=== PATIENT | female | born 2000 | race Asian ===

== ENCOUNTER → 2022-12-17 13:28 | Outpatient (CLI) | payer OTHER, MEDICAID, SELFPAY ==
[2022-12-18 04:09] LABS: Labcorp Hemoglobin (Hb) A1c 5.5 % (4.8-5.6)
== END ==
PROVIDERS: Family Provider Family Medicine; PCP Family Medicine; Referring Provider Family Medicine; Visit Provider Family Medicine
DX: R73.9 Hyperglycemia, unspecified (principal)
CPT/HCPCS: 36415; 83036

== ENCOUNTER 2023-01-07 15:05 | Outpatient (RCR) | payer OTHER, MEDICAID, SELFPAY ==
--- NOTE | 2023-01-07 16:00 | PT.OPPOC ---
Physical, Occupational & Speech Therapy At [facility] Current Diagnoses Pain in right leg (01/07/23) Pain in right thigh (01/07/23) Visit Care Team Role Provider Type Nelia Urbina DO Attending Provider Physician Family Provider Primary Care Provider Referring Provider Specialty: Family Practice Address: [address] [place] [address], [address], [facility] Email: [email or web address] Plan Of Care PT-OP-T Assessment and Plan Start: 01/07/23 16:52 Freq: Status: Active Protocol: Document 01/07/23 15:15 DCW (Rec: 01/10/23 09:56 DCW [id number]) Physical Therapy Assessment Rehab Potential Rehabilitation Potential Poor Evaluation Complexity Number of Personal Factors/Comorbidities 0 Number of Body Systems Impaired 1-2 Clinical Presentation at Evaluation Unstable Assessment Summary Assessment Pt presents with LE pain and tenderness of unclear etiology . No indications of soft tissue/musculoskeletal injury. Joint mobility WNL in both hip and knee. Entire R LE hypersensitive to palpation. Pt subjective complaints of increased temperature to the touch and a red spot on her thigh when she has a flair up my indicate underlying vascular condition or potentially CRPS. No indication that pt would benefit from further skilled therapy, but may benefit from further advanced imaging or referral to vascular specialist. Physical Therapy Plan Frequency and Duration Frequency of Treatment 1x/Week Plan of Care Start Date 01/07/23 Plan of Care End Date 01/08/23 Discharge Physical Therapy Discharge Reasons No Longer Attending PT Next Visit Focus/Plan Next Note Type Discharge Summary Plan of Care Dates Plan of Care Start Date 01/07/23 Plan of Care End Date 01/08/23 Electronically Signed by: David Potts, PT 01/10/23 0958 If you are in agreement with this Plan of Care, please return a signed and dated copy. I have reviewed this Plan of Care and certify that the skilled therapy services above are required to meet the patient?s needs. Physician Signature Date Printed Name and Credentials Clinical Instructor Signature Printed Name and Credentials
--- NOTE | 2023-01-07 16:00 | PT.OIE ---
Current Diagnoses Pain in right leg (01/07/23) Pain in right thigh (01/07/23) Past Medical History (Last Updated 12/29/22 @ 20:35 by Henrietta Odom) Anxiety (~2017) Asthma (~2019) PTSD (post-traumatic stress disorder) (~2019) Past Surgical History (Last Updated 12/29/22 @ 20:35 by Henrietta Odom) Anesthesia Robertson teeth removed (~07/2020) Visit Care Team Role Provider Type Nelia Urbina DO Attending Provider Physician Family Provider Primary Care Provider Referring Provider Specialty: Family Practice Address: [address] [place] [address], [address], [facility] Email: [email or web address] [facility] Initial Evaluation PT-OP-A Visit Information Start: 01/07/23 16:51 Freq: Status: Active Protocol: Document 01/07/23 15:15 DCW (Rec: 01/07/23 16:56 DCW [id number]) Out-Patient Physical Therapy Visit Information Visit Information Visit Type Initial Evaluation Visit Start Time 15:15 Visit Stop Time 15:45 Total Visit Minutes 30 Visit Number 1 Number of ENGAGEMENT SPECIALIST Visits 0 Evaluation Information Evaluation Date 01/07/23 PT-OP-B Current Condition Start: 01/07/23 16:51 Freq: Status: Active Protocol: Document 01/07/23 15:15 DCW (Rec: 01/10/23 09:56 DCW [id number]) Current Condition History of Current Condition Onset Date Two year history Current Complaints Off and on leg pain History of Current Condition Pt is a 22 year old female presenting to skilled therapy with a two year history of off and on right leg pain. Pt reports he pain is in her lateral thigh, knee, and recently into her foot. Admits it feels stiff a lot, and she often gets muscle spasms throughout. Entire leg is very sensitive to touch. Pt does not remember any injury to this leg. Notes that often when it gets really bad, her leg is hot to the touch and she gets a red spot on her thigh. PT-OP-C Subjective Start: 01/07/23 16:51 Freq: Status: Active Protocol: Document 01/07/23 15:15 DCW (Rec: 01/07/23 16:56 DCW [id number]) OP-PT Subjective Patient Comments Patient Comments I think there is something else going on with my leg. Patient Reported Progress Worse Patient Questionnaires Lower Extremity Functional Scale LEFS Score 43/80 = 53.75% LEFS Impairment 40 to 59% Impaired (Score 32- 47) OP-PT Pain Assessment Pain Assessment Grid Paper Pain Assessment Grid Completed Yes Location Right Leg Intensity 7 Scale Used Numeric (0 - 10) PT-OP-F Manual Assessment Start: 01/07/23 16:51 Freq: Status: Active Protocol: Document 01/07/23 15:15 DCW (Rec: 01/10/23 09:56 DCW [id number]) Manual Assessments Soft Tissue Assessment Soft Tissue Mobility Assessment Soft tissue tenderness along entirety of right LE Joint Mobility Assessment Joint Mobility Assessment No deficits in joint mobility PT-OP-K Range of Motion Start: 01/07/23 16:52 Freq: Status: Active Protocol: Document 01/07/23 15:15 DCW (Rec: 01/10/23 09:56 DCW [id number]) Hip Goniometric Range of Motion Hip Right Active Hip ROM WFL Yes Knee Goniometric Range of Motion Knee Right Knee ROM WFL Yes PT-OP-L Special Tests Start: 01/07/23 16:52 Freq: Status: Active Protocol: Document 01/07/23 15:15 DCW (Rec: 01/10/23 09:56 DCW [id number]) Special Tests Hip Special Tests Scour Test Test Results Negative Straight Leg Raise Test Results Bilateral hamstring tightness KAYLEN Test Results Negative Knee Special Tests Varus- 25 Degrees Test Results Negative Valgus- 25 Degrees Test Results Negative Posterior Draw Test Results Negative Ever's Test Test Results Mildly positive right Hari Test Test Results Negative Apprehension Test Test Results Negative Anterior Draw Test Results Negative PT-OP-M Strength Start: 01/07/23 16:52 Freq: Status: Active Protocol: Document 01/07/23 15:15 DCW (Rec: 01/07/23 16:56 DCW [id number]) Hip Strength Hip Manual Muscle Testing Right Flexion (L2) 3+ Fair+ Abduction 4- Good- Adduction 4- Good- Left Flexion (L2) 4+ Good+ Abduction 4+ Good+ Adduction 4+ Good+ PT-OP-T Assessment and Plan Start: 01/07/23 16:52 Freq: Status: Active Protocol: Document 01/07/23 15:15 DCW (Rec: 01/10/23 09:56 DCW [id number]) Physical Therapy Assessment Rehab Potential Rehabilitation Potential Poor Evaluation Complexity Number of Personal Factors/Comorbidities 0 Number of Body Systems Impaired 1-2 Clinical Presentation at Evaluation Unstable Assessment Summary Assessment Pt presents with LE pain and tenderness of unclear etiology . No indications of soft tissue/musculoskeletal injury. Joint mobility WNL in both hip and knee. Entire R LE hypersensitive to palpation. Pt subjective complaints of increased temperature to the touch and a red spot on her thigh when she has a flair up my indicate underlying vascular condition or potentially CRPS. No indication that pt would benefit from further skilled therapy, but may benefit from further advanced imaging or referral to vascular specialist. Physical Therapy Plan Frequency and Duration Frequency of Treatment 1x/Week Plan of Care Start Date 01/07/23 Plan of Care End Date 01/08/23 Discharge Physical Therapy Discharge Reasons No Longer Attending PT Next Visit Focus/Plan Next Note Type Discharge Summary
== END 2023-01-13 16:31 | disposition home or self-care (01) ==
LOC: PHYS 15:05
PROVIDERS: Absent Provider Family Medicine; Family Provider Family Medicine; PCP Family Medicine; Referring Provider Family Medicine; Visit Provider Family Medicine
DX: M79.651 Pain in right thigh (principal); M79.604 Pain in right leg
CPT/HCPCS: 97162

== ENCOUNTER → 2023-01-27 16:21 | Outpatient (CLI) | payer OTHER, MEDICAID, SELFPAY ==
--- NOTE | 2023-01-27 16:23 | DI.RAD.S_ITS ---
PROCEDURE: XR KNEE RT 3V INDICATIONS: right knee pain TECHNIQUE: 3 views of the knee were acquired. COMPARISON: None. FINDINGS: Bones: No fractures or dislocations. No suspicious bony lesions. Soft tissues: No joint effusion. No suspicious soft tissue calcifications. IMPRESSION: No fracture. No osseous lesion. If symptoms and/or clinical suspicion for pathology persists, further assessment with advanced imaging (e.g. CT, MRI or bone scan) should be considered. Dictated by: Joy Guerrero MD, PhD on 01/27/2023 at 17:04 Approved by: Joy Guerrero MD, PhD on 01/27/2023 at 17:04
[2023-01-27 16:40] LABS: Add Manual Diff / Slide Review NO; Basophils Absolute Auto 100 /uL (0-100); Basophils Percent Auto 0.8 % (0-2); Eosinophils Absolute Auto 100 /uL (0-450); Eosinophils Percent Auto 1.2 % (2-4); Hematocrit 36.6 % (36-46); Hemoglobin 12.4 g/dL (12.0-16.0); Lymphocytes Absolute Auto 2300 /uL (1100-4500); Lymphocytes Percent Auto 30.3 % (25-40); Mean Corpuscular HGB Conc 33.9 % (30-36); Mean Corpuscular Hemoglobin 26.8 PG (26-34); Mean Corpuscular Volume 79.2 fL (80-100); Monocytes Absolute Auto 600 /uL (0-900); Monocytes Percent Auto 7.2 % (3-14); Neutrophils Absolute Auto 4700 /uL (1500-7000); Neutrophils Percent Auto 60.5 % (50-75); Platelet Count 318 X10^3/uL (150-400); Red Blood Cell Count 4.62 X10^6/uL (4.0-5.2); Red Cell Distribution Width 12.9 % (11.6-14.8); White Blood Cell Count 7.7 X10^3/uL (4.5-11.0)
[2023-01-27 16:52] LABS: HEMOLYSIS < 15 (0-50); Iron 43 ug/dL (37-170)
[2023-01-27 16:54] LABS: Alanine Aminotransferase 19 IU/L (<35); Albumin 4.3 g/dL (3.5-5.0); Albumin Globulin Ratio 1.3 (1.0-2.8); Alkaline Phosphatase 52 U/L (38-126); Aspartate Aminotransferase 19 IU/L (14-36); BUN Creatinine Ratio 15.2 (6-22); Bilirubin Total 0.3 mg/dL (0.2-1.3); Blood Urea Nitrogen 12 mg/dL (7-17); Calcium 9.3 mg/dL (8.4-10.2); Carbon Dioxide 25 mmol/L (22-32); Chloride 103 mmol/L (98-107); Estimated Glomerular Filt Rate > 60 mL/min (>60); Globulin 3.3 g/dL (1.7-4.1); Glucose 95 mg/dL (70-100); HEMOLYSIS < 15 (0-50); Sodium 136 mmol/L (137-145); Total Protein 7.6 g/dL (6.3-8.2)
[2023-01-27 17:03] LABS: Percent Iron Saturation 11 % (15-50); Total Iron Binding Capacity 392 ug/dL (265-497); Transferrin 297 mg/dL (206-381)
[2023-01-27 17:23] LABS: TSH w/ Reflex to FT4 2.87 uIU/mL (0.47-4.68)
[2023-01-27 17:38] LABS: Vitamin D 25 Hydroxy (D3) 17.1 ng/mL (30.0-100.0)
== END ==
PROVIDERS: Family Provider Family Medicine; PCP Family Medicine; Referring Provider Physician Assistant; Visit Provider Physician Assistant
DX: M25.561 Pain in right knee (principal); H81.10 Benign paroxysmal vertigo, unspecified ear; G89.29 Other chronic pain
CPT/HCPCS: 36415; 73562; 80053; 82306; 83540; 83550; 84443; 85025

== ENCOUNTER → 2023-02-10 10:34 | Outpatient (CLI) | payer OTHER, MEDICAID, SELFPAY ==
[2023-02-10 12:31] LABS: Add Manual Diff / Slide Review NO; Basophils Absolute Auto 0 /uL (0-100); Basophils Percent Auto 0.6 % (0-2); Eosinophils Absolute Auto 100 /uL (0-450); Eosinophils Percent Auto 1.8 % (2-4); Hematocrit 37.9 % (36-46); Hemoglobin 12.5 g/dL (12.0-16.0); Lymphocytes Absolute Auto 1900 /uL (1100-4500); Mean Corpuscular Hemoglobin 26.4 PG (26-34); Mean Corpuscular Volume 80.2 fL (80-100); Monocytes Absolute Auto 300 /uL (0-900); Monocytes Percent Auto 4.5 % (3-14); Neutrophils Absolute Auto 5000 /uL (1500-7000); Neutrophils Percent Auto 67.1 % (50-75); Platelet Count 340 X10^3/uL (150-400); Red Blood Cell Count 4.73 X10^6/uL (4.0-5.2); Red Cell Distribution Width 12.9 % (11.6-14.8); White Blood Cell Count 7.5 X10^3/uL (4.5-11.0)
[2023-02-10 12:56] LABS: Alanine Aminotransferase 18 IU/L (<35); Albumin 4.3 g/dL (3.5-5.0); Albumin Globulin Ratio 1.2 (1.0-2.8); Alkaline Phosphatase 53 U/L (38-126); Aspartate Aminotransferase 20 IU/L (14-36); Bilirubin Total 0.4 mg/dL (0.2-1.3); Blood Urea Nitrogen 11 mg/dL (7-17); Calcium 9.5 mg/dL (8.4-10.2); Carbon Dioxide 26 mmol/L (22-32); Chloride 104 mmol/L (98-107); Estimated Glomerular Filt Rate > 60 mL/min (>60); Globulin 3.6 g/dL (1.7-4.1); Glucose 102 mg/dL (70-100); HEMOLYSIS < 15 (0-50); Sodium 139 mmol/L (137-145); Total Protein 7.9 g/dL (6.3-8.2)
[2023-02-10 13:44] LABS: Vitamin B12 648 pg/mL (239-931)
[2023-02-10 14:10] LABS: Free T4, Direct Thyroxine 1.32 ng/dL (0.78-2.19)
[2023-02-12 02:23] LABS: Free T3, Triiodothyronine Free 3.55 pg/mL (2.77-5.27)
== END ==
PROVIDERS: Family Provider Family Medicine; PCP Family Medicine; Referring Provider Physician Assistant; Visit Provider Physician Assistant
DX: G62.9 Polyneuropathy, unspecified (principal); R42 Dizziness and giddiness; R53.83 Other fatigue; H81.10 Benign paroxysmal vertigo, unspecified ear; I95.1 Orthostatic hypotension; R79.0 Abnormal level of blood mineral
CPT/HCPCS: 36415; 80053; 82607; 84439; 84481; 85025

== ENCOUNTER 2023-02-12 20:37 | Observation (INO) | payer OTHER, MEDICAID, SELFPAY ==
[2023-02-12] VITALS (8 sets, daily range): BP systolic 115–139; BP diastolic 68–84; PULSE 95–149; RESP 8–20; TEMP 37.1–37.2; O2SAT 98–100; BMI 27.3
--- NOTE | 2023-02-12 21:04 | DI.RAD.S_ITS ---
PROCEDURE: XR CHEST 1V INDICATIONS: chest pain TECHNIQUE: One view of the chest was acquired. COMPARISON: None. FINDINGS: Surgical changes and devices: None. Lungs and pleura: Lungs are clear. No pleural effusions or pneumothorax. Mediastinum: Mediastinal contours appear normal. Heart size is normal. Bones and chest wall: No suspicious bony lesions. Overlying soft tissues appear unremarkable. IMPRESSION: No evidence acute pulmonary process. Dictated by: Anup Pagan M.D. on 02/12/2023 at 21:19 Approved by: Anup Pagan M.D. on 02/12/2023 at 21:19
[2023-02-12 21:50] LABS: PTT Partial Thromboplastin Tim 37 SECONDS (26-36)
[2023-02-12 21:51] LABS: Add Manual Diff / Slide Review NO; Basophils Absolute Auto 100 /uL (0-100); Basophils Percent Auto 0.6 % (0-2); Eosinophils Absolute Auto 100 /uL (0-450); Eosinophils Percent Auto 0.6 % (2-4); Hematocrit 38.4 % (36-46); Hemoglobin 12.8 g/dL (12.0-16.0); Lymphocytes Absolute Auto 2400 /uL (1100-4500); Lymphocytes Percent Auto 27.3 % (25-40); Mean Corpuscular HGB Conc 33.2 % (30-36); Mean Corpuscular Hemoglobin 26.4 PG (26-34); Mean Corpuscular Volume 79.5 fL (80-100); Monocytes Absolute Auto 500 /uL (0-900); Monocytes Percent Auto 5.1 % (3-14); Neutrophils Absolute Auto 5900 /uL (1500-7000); Neutrophils Percent Auto 66.4 % (50-75); Platelet Count 382 X10^3/uL (150-400); Red Blood Cell Count 4.83 X10^6/uL (4.0-5.2); Red Cell Distribution Width 12.9 % (11.6-14.8); White Blood Cell Count 8.9 X10^3/uL (4.5-11.0)
[2023-02-12 21:52] LABS: Alanine Aminotransferase 19 IU/L (<35); Albumin 4.7 g/dL (3.5-5.0); Albumin Globulin Ratio 1.2 (1.0-2.8); Alkaline Phosphatase 47 U/L (38-126); Aspartate Aminotransferase 23 IU/L (14-36); BUN Creatinine Ratio 10.6 (6-22); Bilirubin Total 0.3 mg/dL (0.2-1.3); Blood Urea Nitrogen 7 mg/dL (7-17); Calcium 9.5 mg/dL (8.4-10.2); Carbon Dioxide 24 mmol/L (22-32); Chloride 104 mmol/L (98-107); Creatine Kinase 49 U/L (30-135); Estimated Glomerular Filt Rate > 60 mL/min (>60); Glucose 96 mg/dL (70-100); HEMOLYSIS < 15 (0-50); Lipase 69 U/L (23-300); Potassium 3.4 mmol/L (3.4-5.1); Sodium 140 mmol/L (137-145); Total Protein 8.7 g/dL (6.3-8.2)
--- NOTE | 2023-02-12 21:56 | ED.ARRPALP ---
HPI - Arrhythmia/Palpitations General Chief Complaint: Arrhythmia/Palpitations Stated Complaint: Dizzy, Fluctuating BP Time Seen by Provider: 02/12/23 21:53 Source: patient Mode of arrival: Ambulatory Limitations: no limitations History of Present Illness HPI narrative: This is a 22-year-old female with a history of asthma which has been relatively well controlled. Patient states 2-1/2 weeks ago she got sick had nausea vomiting diarrhea the 1st week states that improved she did go to an urgent care got some antinausea medication but then started feeling dizzy. She describes her dizziness as feeling lightheaded like she might pass out. She starts to get a little bit of tunnel vision. She does not have any vertigo symptoms or room spinning or feeling off balance. She saw primary care nurse practitioner who told her she had low vitamin-D, iron and was had orthostatic hypotension. Patient has been drinking water regularly but still felt persistently dizzy. In the last day she had chest pressure/pain which he describes as substernal radiated a little bit towards her back. Did not radiate anywhere else. She denies any abdominal back or flank pain. She states she has felt a little short of breath particularly with sitting up. She states chest pain is worse when she sits upright it goes away when she lays flat. Leaning forward does not make any difference. She does feel that her heart rate goes up when she sits up or tries to walk around. She states she is felt fatigued in her arms and legs overall for the past 2 weeks. She states she was also having some ear pain intermittently but that she saw an ENT who told her that she was okay this was the 1st week around January 27. Patient states she uses inhaler as needed, EpiPen, was taking naproxen but stopped. Patient states she has known asthma. She tried to she thought the smoke might be irritating her lungs. She had some early today but none recently. She has not had any prior surgeries besides wisdom teeth 2 years ago. No known drug allergies. No tobacco, no alcohol, no illicit. No oral contraceptives or other forms of estrogen. No long distance travel. She states mom and dad both have hypertension. Her grandfather had a stroke. No known embolic history otherwise, no known cardiac issues otherwise. Related Data Home Medications Medication Instructions Recorded Confirmed albuterol sulfate 90 mcg/actuation 2 puff inhalation Q6H 11/29/22 02/10/23 aerosol inhaler Previous Rx's Medication Instructions Recorded olopatadine 0.1 % eye drops 1 drp EYE-BOTH BID PRN allergies 12/17/22 #5 mL meclizine 25 mg tablet (Motion 25 mg PO QID #30 tabs 01/27/23 Sickness Relief (meclizine)) ferrous sulfate 325 mg (65 mg 325 mg PO DAILY #90 tabs 01/28/23 iron) tablet,delayed release naproxen 500 mg tablet 500 mg PO BID PRN pain #60 tabs 02/03/23 cholecalciferol (vitamin D3) 1,250 1,250 mcg PO QWEEK #12 caps 02/10/23 mcg (50,000 unit) capsule Allergies Allergy/AdvReac Type Severity Reaction Status Date / Time No Known Drug Allergies Allergy Verified 02/12/23 21:00 Review of Systems Review of Systems ROS Unobtainable: All systems reviewed & are unremarkable except as noted in HPI and below Patient History Medical History Anxiety (~2017) Asthma (~2019) PTSD (post-traumatic stress disorder) (~2019) Skin lesion of lower extremity Surgical History Anesthesia [place] teeth removed (~07/2020) Family History Father Hypertension Mother Mental health problem Social History Smoking Status: Never smoker Smoking Status: Never smoker Substance Use Type: does not use Exam Narrative Exam Narrative: GEN: well nourished, well appearing female, alert and oriented x 3, patient appears to be in mild distress. HEENT: Atraumatic, pupils are equal round reactive to light, extraocular movements are intact, nares are clear, TMs are clear with no fluid, there is no conjunctival pallor. Throat is clear without any exudates, erythema, tonsillar enlargement or uvular deviation HEART: Regular rate and rhythm without murmur, clicks, rubs. Pulses are equal in upper and lower extremities. No JVD noted. No swelling bilateral lower extremities. LUNGS:Lungs clear to auscultation, no wheezes, rales, crackles, chest moves symmetrically, no tachypnea or accessory muscle use ABD:bowel sounds normal, soft, non-tender, no guarding, rebound, rigidity, no masses noted, no hepatosplenomegaly, no pulsatile mass or bruit :No CVA tenderness MSCL: Non-tender, no muscle atrophy, muscles strength 5/5 upper and lower extremities, full range of motion, normal gait NEURO:CN 2-12 intact, sensation normal. SKIN: No rash, erythema or other skin changes. Initial Vital Signs Initial Vital Signs: Vital Signs Temperature 98.8 F 02/12/23 21:00 Pulse Rate 149 H 02/12/23 21:00 Respiratory Rate 18 02/12/23 21:00 Blood Pressure 139/84 02/12/23 21:00 Pulse Oximetry 100 02/12/23 21:00 Oxygen Delivery Method Room Air 02/12/23 21:00 Procedures Paracentesis Indication: Ascites Scores HEART Score Heart Score history: Moderately Suspicious Heart Score EKG: Non-Specific repolarization disturbance Heart Score Age: < 45 years old Heart Score risk factors: No known risk factors Heart Score troponin: < or = to normal limit Heart Score Total: 2 PERC Score Age greater than or equal to 50 years: No Heart rate greater than or equal to 100 bpm: Yes Room Air O2 Sat less than 95%: No Unilateral leg swelling: No Recent trauma or surgery: No Hemoptysis: No Prior PE or DVT: No Hormone Use: No Total PERC Score: 1 Course Orders Ordered: ED Orders 02/12/23 21:04 XR chest 1V Stat EKG-12 Lead Stat 02/12/23 21:25 Urine Culture Stat 02/12/23 21:32 BNP [NT-proBNP (BNP-Adult 18+)] Stat CRP [C-Reactive Protein Quant] Stat Complete Blood Count AUTO DIFF Stat Comprehensive Metabolic Panel Stat ESR [Erythrocyte Sedimentation Rate] Stat Lipase Stat Magnesium Stat PTT Partial Thromboplastin Henrique Stat Prothrombin Time INR Stat Troponin & CK Cardiac Panel Stat 02/12/23 22:25 CT angio chest PE protocol Stat 02/12/23 22:30 Respiratory Panel (Film Array) Stat 02/12/23 23:29 Trop I [Troponin I] Stat 02/13/23 00:32 Urine Microscopic Stat 02/13/23 00:58 EC echo doppler complete Stat 02/13/23 01:09 Urine Drug Screen, Rapid Stat Sodium Chloride (Normal Saline 0.9%) 1,000 mls @ 150 mls/hr IV CONT NIDHI Last Admin: 02/13/23 01:09 Dose: 150 mls/hr Documented By: YAIMA Discontinued Medications Acetaminophen (Acetaminophen 325 Mg Tablet) 975 mg PO NOW ONE Stop: 02/12/23 23:35 Last Admin: 02/12/23 23:39 Dose: 975 mg Documented By: YAIMA Aspirin (Aspirin 81 Mg Chew Tab) 324 mg PO NOW ONE Stop: 02/12/23 21:05 Last Admin: 02/12/23 22:34 Dose: Not Given Documented By: CELE Hydromorphone HCl (Hydromorphone 1 Mg Inj) 1 mg IV NOW ONE Stop: 02/12/23 23:33 Last Admin: 02/12/23 23:36 Dose: Not Given Documented By: YAIMA Sodium Chloride (Normal Saline 0.9%) 1,000 mls @ 1,000 mls/hr IV BOLUS ONE Stop: 02/12/23 22:58 Last Infusion: 02/13/23 00:00 Dose: 0 mls/hr Documented By: Infusion: 02/12/23 22:54 Dose: 1,000 mls/hr Documented By: Admin: 02/12/23 22:35 Dose: 1,000 mls/hr Documented By: SPF Sodium Chloride (Normal Saline 0.9%) 1,000 mls @ 1,000 mls/hr IV BOLUS ONE Stop: 02/13/23 00:41 Last Infusion: 02/13/23 00:43 Dose: 0 mls/hr Documented By: Admin: 02/12/23 23:59 Dose: 1,000 mls/hr Documented By: YAIMA Ondansetron HCl (Ondansetron 4 Mg/2 Ml Inj) 4 mg IV NOW ONE Stop: 02/12/23 23:33 Last Admin: 02/12/23 23:35 Dose: Not Given Documented By: YAIMA Vital Signs Vital signs: Vital Signs - 8 hr 02/12/23 21:00 02/12/23 21:35 02/12/23 22:00 Temperature 98.8 F Pulse Rate 149 H 117 H Respiratory Rate 18 Blood Pressure 139/84 115/68 Pulse Oximetry 100 99 Oxygen Delivery Method Room Air 02/12/23 22:00 02/12/23 22:30 02/12/23 22:30 Temperature Pulse Rate 114 H 112 H Respiratory Rate 14 20 Blood Pressure 122/73 Pulse Oximetry 98 99 Oxygen Delivery Method Room Air 02/12/23 22:48 02/12/23 22:48 02/12/23 22:59 Temperature 99.0 F Pulse Rate 108 H Respiratory Rate 14 Blood Pressure 126/80 118/74 Pulse Oximetry 99 Oxygen Delivery Method 02/12/23 22:59 02/12/23 23:00 02/12/23 23:30 Temperature Pulse Rate 108 H 107 H Respiratory Rate 8 L 11 L Blood Pressure 128/78 Pulse Oximetry 100 100 Oxygen Delivery Method Room Air 02/12/23 23:30 02/13/23 00:00 02/13/23 00:30 Temperature Pulse Rate 95 H 100 H 94 H Respiratory Rate 17 15 13 Blood Pressure Pulse Oximetry 100 99 99 Oxygen Delivery Method 02/13/23 00:47 02/13/23 00:47 02/13/23 01:00 Temperature Pulse Rate 86 Respiratory Rate Blood Pressure 128/85 119/75 Pulse Oximetry 89 L Oxygen Delivery Method 02/13/23 01:00 Temperature Pulse Rate 79 Respiratory Rate 15 Blood Pressure Pulse Oximetry 100 Oxygen Delivery Method MDM - Arrhythmia/Palpitations Lab Data 02/12/23 21:32 02/12/23 21:32 Labs: Lab Results 02/12/23 02/12/23 02/12/23 Range/Units 21:25 21:25 21:32 WBC 8.9 (4.5-11.0) X10^3/uL RBC 4.83 (4.0-5.2) X10^6/uL Hgb 12.8 (12.0-16.0) g/dL Hct 38.4 (36-46) % MCV 79.5 L (80-100) fL MCH 26.4 (26-34) PG MCHC 33.2 (30-36) % RDW 12.9 (11.6-14.8) % Plt Count 382 (150-400) X10^3/uL Neut % (Auto) 66.4 (50-75) % Lymph % (Auto) 27.3 (25-40) % [place] % (Auto) 5.1 (3-14) % Eos % (Auto) 0.6 L (2-4) % Baso % (Auto) 0.6 (0-2) % Neut # (Auto) 5900 (8757-6094) /uL Lymph # (Auto) 2400 (5645-3547) /uL [place] # (Auto) 500 (0-900) /uL Eos # (Auto) 100 (0-450) /uL Baso # (Auto) 100 (0-100) /uL ESR (0-20) MM/HR PT (10.1-12.7) SECONDS INR (0.9-1.3) APTT (26-36) SECONDS Sodium (137-145) mmol/L Potassium (3.4-5.1) mmol/L Chloride (98-107) mmol/L Carbon Dioxide (22-32) mmol/L BUN (7-17) mg/dL Creatinine (0.52-1.04) mg/dL Estimated GFR (>60) mL/min BUN/Creatinine Ratio (6-22) Glucose (70-100) mg/dL Calcium (8.4-10.2) mg/dL Magnesium (1.6-2.3) mg/dL Total Bilirubin (0.2-1.3) mg/dL AST (14-36) IU/L ALT (<35) IU/L Alkaline Phosphatase (38-126) U/L Total Creatine Kinase (30-135) U/L Troponin I (0.01-0.034) ng/mL C-Reactive Protein (<1.0) mg/dL NT-Pro-B Natriuret Pep (<125) pg/mL Total Protein (6.3-8.2) g/dL Albumin (3.5-5.0) g/dL Globulin (1.7-4.1) g/dL Albumin/Globulin Ratio (1.0-2.8) Lipase (23-300) U/L Urine RBC None seen (0-5/HPF) Urine WBC 1-5/hpf (0-5/HPF) Ur Squamous Epith Cells 1-5 /hpf (0-5/HPF) Urine Bacteria Few (2-10) H (None) Ur Culture Indicated? Specimen cultured U Opiates 300ng/mL cut Negative (Negative) Ur Oxycodone Screen Negative (Negative) Urine Methadone Screen Negative (Negative) Ur Barbiturates Screen Negative (Negative) U Tricyclic Antidepress Negative (Negative) Ur Phencyclidine Scrn Negative (Negative) Ur Amphetamines Screen Negative (Negative) U Methamphetamines Scrn Negative (Negative) Ur MDMA Scrn (Ecstasy) Negative (Negative) U Benzodiazepines Scrn Negative (Negative) Urine Cocaine Screen Negative (Negative) U Marijuana (THC) Screen Negative (Negative) Chlamy pneumoniae PCR (Not Detect) Adenovirus (PCR) (Not Detect) B. pertussis DNA (PCR) (Not Detecte) B.parapertussis DNA PCR (Not Detecte) Coronavirus OC43 (PCR) (Not Detect) Coronavirus HKU1 (PCR) (Not Detect) Coronavirus 229E (PCR) (Not Detect) SARS-CoV-2 (PCR) (Not Detecte) Coronavirus NL63 (PCR) (Not Detect) Human Metapneumovir PCR (Not Detect) Influenza Type A (PCR) (Not Detect) Influenza Type B (PCR) (Not Detect) M. pneumoniae (PCR) (Not Detect) Parainfluenza 1 (PCR) (Not Detect) Parainfluenza 2 (PCR) (Not Detect) Parainfluenza 3 (PCR) (Not Detect) Parainfluenza 4 (PCR) (Not Detect) RSV (PCR) (Not Detect) Entero/Rhino (PCR) (Not Detect) 02/12/23 02/12/23 02/12/23 Range/Units 21:32 21:32 21:32 WBC (4.5-11.0) X10^3/uL RBC (4.0-5.2) X10^6/uL Hgb (12.0-16.0) g/dL Hct (36-46) % MCV (80-100) fL MCH (26-34) PG MCHC (30-36) % RDW (11.6-14.8) % Plt Count (150-400) X10^3/uL Neut % (Auto) (50-75) % Lymph % (Auto) (25-40) % [place] % (Auto) (3-14) % Eos % (Auto) (2-4) % Baso % (Auto) (0-2) % Neut # (Auto) (5914-3356) /uL Lymph # (Auto) (3645-4701) /uL [place] # (Auto) (0-900) /uL Eos # (Auto) (0-450) /uL Baso # (Auto) (0-100) /uL ESR 40 H (0-20) MM/HR PT 12.0 (10.1-12.7) SECONDS INR 1.0 (0.9-1.3) APTT 37 H (26-36) SECONDS Sodium 140 (137-145) mmol/L Potassium 3.4 (3.4-5.1) mmol/L Chloride 104 (98-107) mmol/L Carbon Dioxide 24 (22-32) mmol/L BUN 7 (7-17) mg/dL Creatinine 0.66 (0.52-1.04) mg/dL Estimated GFR > 60 (>60) mL/min BUN/Creatinine Ratio 10.6 (6-22) Glucose 96 (70-100) mg/dL Calcium 9.5 (8.4-10.2) mg/dL Magnesium 2.0 (1.6-2.3) mg/dL Total Bilirubin 0.3 (0.2-1.3) mg/dL AST 23 (14-36) IU/L ALT 19 (<35) IU/L Alkaline Phosphatase 47 (38-126) U/L Total Creatine Kinase 49 (30-135) U/L Troponin I < 0.012 (0.01-0.034) ng/mL C-Reactive Protein (<1.0) mg/dL NT-Pro-B Natriuret Pep (<125) pg/mL Total Protein 8.7 H (6.3-8.2) g/dL Albumin 4.7 (3.5-5.0) g/dL Globulin 4.0 (1.7-4.1) g/dL Albumin/Globulin Ratio 1.2 (1.0-2.8) Lipase 69 (23-300) U/L Urine RBC (0-5/HPF) Urine WBC (0-5/HPF) Ur Squamous Epith Cells (0-5/HPF) Urine Bacteria (None) Ur Culture Indicated? U Opiates 300ng/mL cut (Negative) Ur Oxycodone Screen (Negative) Urine Methadone Screen (Negative) Ur Barbiturates Screen (Negative) U Tricyclic Antidepress (Negative) Ur Phencyclidine Scrn (Negative) Ur Amphetamines Screen (Negative) U Methamphetamines Scrn (Negative) Ur MDMA Scrn (Ecstasy) (Negative) U Benzodiazepines Scrn (Negative) Urine Cocaine Screen (Negative) U Marijuana (THC) Screen (Negative) Chlamy pneumoniae PCR (Not Detect) Adenovirus (PCR) (Not Detect) B. pertussis DNA (PCR) (Not Detecte) B.parapertussis DNA PCR (Not Detecte) Coronavirus OC43 (PCR) (Not Detect) Coronavirus HKU1 (PCR) (Not Detect) Coronavirus 229E (PCR) (Not Detect) SARS-CoV-2 (PCR) (Not Detecte) Coronavirus NL63 (PCR) (Not Detect) Human Metapneumovir PCR (Not Detect) Influenza Type A (PCR) (Not Detect) Influenza Type B (PCR) (Not Detect) M. pneumoniae (PCR) (Not Detect) Parainfluenza 1 (PCR) (Not Detect) Parainfluenza 2 (PCR) (Not Detect) Parainfluenza 3 (PCR) (Not Detect) Parainfluenza 4 (PCR) (Not Detect) RSV (PCR) (Not Detect) Entero/Rhino (PCR) (Not Detect) 02/12/23 02/12/23 02/12/23 Range/Units 21:32 22:30 23:29 WBC (4.5-11.0) X10^3/uL RBC (4.0-5.2) X10^6/uL Hgb (12.0-16.0) g/dL Hct (36-46) % MCV (80-100) fL MCH (26-34) PG MCHC (30-36) % RDW (11.6-14.8) % Plt Count (150-400) X10^3/uL Neut % (Auto) (50-75) % Lymph % (Auto) (25-40) % [place] % (Auto) (3-14) % Eos % (Auto) (2-4) % Baso % (Auto) (0-2) % Neut # (Auto) (7290-8907) /uL Lymph # (Auto) (7577-9953) /uL [place] # (Auto) (0-900) /uL Eos # (Auto) (0-450) /uL Baso # (Auto) (0-100) /uL ESR (0-20) MM/HR PT (10.1-12.7) SECONDS INR (0.9-1.3) APTT (26-36) SECONDS Sodium (137-145) mmol/L Potassium (3.4-5.1) mmol/L Chloride (98-107) mmol/L Carbon Dioxide (22-32) mmol/L BUN (7-17) mg/dL Creatinine (0.52-1.04) mg/dL Estimated GFR (>60) mL/min BUN/Creatinine Ratio (6-22) Glucose (70-100) mg/dL Calcium (8.4-10.2) mg/dL Magnesium (1.6-2.3) mg/dL Total Bilirubin (0.2-1.3) mg/dL AST (14-36) IU/L ALT (<35) IU/L Alkaline Phosphatase (38-126) U/L Total Creatine Kinase (30-135) U/L Troponin I < 0.012 (0.01-0.034) ng/mL C-Reactive Protein < 0.5 (<1.0) mg/dL NT-Pro-B Natriuret Pep < 20 (<125) pg/mL Total Protein (6.3-8.2) g/dL Albumin (3.5-5.0) g/dL Globulin (1.7-4.1) g/dL Albumin/Globulin Ratio (1.0-2.8) Lipase (23-300) U/L Urine RBC (0-5/HPF) Urine WBC (0-5/HPF) Ur Squamous Epith Cells (0-5/HPF) Urine Bacteria (None) Ur Culture Indicated? U Opiates 300ng/mL cut (Negative) Ur Oxycodone Screen (Negative) Urine Methadone Screen (Negative) Ur Barbiturates Screen (Negative) U Tricyclic Antidepress (Negative) Ur Phencyclidine Scrn (Negative) Ur Amphetamines Screen (Negative) U Methamphetamines Scrn (Negative) Ur MDMA Scrn (Ecstasy) (Negative) U Benzodiazepines Scrn (Negative) Urine Cocaine Screen (Negative) U Marijuana (THC) Screen (Negative) Chlamy pneumoniae PCR Not detected (Not Detect) Adenovirus (PCR) Not detected (Not Detect) B. pertussis DNA (PCR) Not detected (Not Detecte) B.parapertussis DNA PCR Not detected (Not Detecte) Coronavirus OC43 (PCR) Not detected (Not Detect) Coronavirus HKU1 (PCR) Not detected (Not Detect) Coronavirus 229E (PCR) Not detected (Not Detect) SARS-CoV-2 (PCR) Not detected (Not Detecte) Coronavirus NL63 (PCR) Not detected (Not Detect) Human Metapneumovir PCR Not detected (Not Detect) Influenza Type A (PCR) Not detected (Not Detect) Influenza Type B (PCR) Not detected (Not Detect) M. pneumoniae (PCR) Not detected (Not Detect) Parainfluenza 1 (PCR) Not detected (Not Detect) Parainfluenza 2 (PCR) Not detected (Not Detect) Parainfluenza 3 (PCR) Not detected (Not Detect) Parainfluenza 4 (PCR) Not detected (Not Detect) RSV (PCR) Not detected (Not Detect) Entero/Rhino (PCR) Not detected (Not Detect) Point of Care Testing Test Results Negative Urine Dip Bedside Urine Glucose Negative Bedside Urine Bilirubin - Negative Bedside Urine Ketone - Negative Urine Specific [place] 1.005 Bedside Urine Occult Blood - Negative Bedside Urine pH 7.5 Bedside Urine Protein - Negative Bedside Urine Urobilinogen - Negative Bedside Urine Nitrite - Negative Bedside Urine Leukocytes ++ 125 Esterase Imaging Data Chest x-ray: Radiologist's Impresson: Close Chest X-Ray (Signed) Anup Pagan - 02/12/23 Knee X-Ray (Signed) Joy Guerrero - 01/27/23 Launch?[address] [address] XRay Report Signed Patient: Vipul Zheng MR#: [id number] : 2000 Acct:[id number] Age/Sex: 22 / F Date of Service: 02/12/23 Loc: ED Accession Number: [id number] ?? Procedure: XR chest 1V Ordering Provider: Ashley Parkinson D.O. PROCEDURE:? XR CHEST 1V ? INDICATIONS:? chest pain ? TECHNIQUE:? One view of the chest was acquired.? ? COMPARISON:? None. ? FINDINGS:? ? Surgical changes and devices:? None.? ? Lungs and pleura:? Lungs are clear.? No pleural effusions or pneumothorax.? ? Mediastinum:? Mediastinal contours appear normal.? Heart size is normal.? ? Bones and chest wall:? No suspicious bony lesions.? Overlying soft tissues appear unremarkable.? ? IMPRESSION:? No evidence acute pulmonary process. ? ? ? Dictated by: Anup Pagan M.D. on 02/12/2023 at 21:19 ? ? Approved by: Anup Pagan M.D. on 02/12/2023 at 21:19?? CT scan - chest: Radiologist's Impresson: [address] [id number] ReportSigned Patient: Irving Jimenez#: [id number]: 07/18/1982Acct:[id number]/Sex: 40 / FDate of Service: 02/12/23Loc: EDAccession Number: [id number]? ? Procedure: XR chest 1V Ordering Provider: Ashley Parkinson D.O. PROCEDURE:? XR CHEST 1V ? INDICATIONS:? sob, ascites. ? TECHNIQUE:? One view of the chest was acquired.? ? COMPARISON:? None. ? FINDINGS:? ? Surgical changes and devices:? None.? ? Lungs and pleura:? Submaximal inspiration with vascular crowding.? No gross infiltrates. ? Mediastinum:? Mediastinal contours appear normal.? Heart size is normal.? ? Bones and chest wall:? No suspicious bony lesions.? Overlying soft tissues appear unremarkable.? ? IMPRESSION:? Submaximal inspiration with vascular crowding.? No gross infiltrates. ? ? Dictated by: Anup Pagan M.D. on 02/12/2023 at 22:17? ?? Approved by: Anup Pagan M.D. on 02/12/2023 at 22:18?? ECG Data Attestation: I personally reviewed and interpreted this ECG as follows: Prior ECG tracings: not available for review Interpretation: Sinus tachycardia rate of 119 PA 144 QRS is 72 QTC of 427. No acute ST elevation. Patient has flattening of T-waves in lateral leads. EKG 2. Sinus rhythm/tachycardia rate of 100 PA 158 QRS is 74 and QTC of 428. No acute ST elevation or depression appreciated. Lead 3 appears similar to prior. No dynamic changes appreciated. MDM Narrative Medical decision making narrative: 22-year-old female presents with complaint of GI illness with nausea vomiting and diarrhea 2 weeks ago that lasted for about a week that improved but she started feeling dizzy describe some orthostatic hypotension primary care office she went to. Patient is persistently felt dizzy and lightheaded particularly when she is upright or tries to walk around she is not had any syncope. She notes that her heart rate is elevated when she sits upright or tries to stand. She started developed chest pain in the last 1-2 days. She is felt a little short of breath. Chest pain is present when she sits upright is resolved when she lays backwards. She does not think it is any worse when she leans forward. Discussed with patient her CBC, CMP, coags, troponin do not show any acute clear cause. Patient has what appears to be sinus tachycardia heart rate was 140 improved lying flat she resolved down to a 110 but is still persistently present, was given a L of fluids. EKG shows nonspecific T-wave change no obvious PA elevation throughout. No priors for comparison. Suspect myocarditis and pulmonary emboli are on the differential as well, vascular issue seems less likely. Plan for repeat troponin, CT angio chest and respiratory panel as patient did have a recent likely viral illness 2-1/2 weeks ago. ESR and CRP were also added on. Respiratory panel is negative. CT angio chest is negative, no pericardial effusion appreciated no pulmonary emboli, lungs are clear, heart size is normal, thoracic aorta normal caliber and enhancement. Patient's ESR is elevated at 40 but CRP is negative. Repeat troponin is negative. Repeat EKG showed no acute changes. Patient had TSH on 01/27/2023 which was normal range at T3/T4 2 days ago which were both in normal range. Patient did have leuks on her urine, no nitrates. Microscopy is pending. Patient states she has not appreciate any urinary symptoms. Patient received a L of fluid and heart rates continued to improve, was given a 2nd additional L as heart rate was approximately 100 after 1 L NS. Patient feels improved after 2 L. HR is consistently in the 90s. Patient got up to use bedside commode when we try to stand and ambulate her heart rate immediately goes to 130 with pulse oximetry. Blood pressure maintained in the 120s. Patient feels very lightheaded like she may pass out. Spoke with Dr. Cotto, hospitalist who accepts for observation. He asked for U tox. Patient has urine in the labs so this was ordered and echo in the a.m.. Discussed if he would like cultures or any additional labs at this time defers. We will continue with fluids. Discharge Plan Departure Patient Disposition: Admitted as Observation Clinical Impression: Tachycardia, Chest pain Admit Date/Time: 02/13/23 01:03 Admit Provider: Sanya Cotto
[2023-02-12 22:03] LABS: Troponin I < 0.012 ng/mL (0.01-0.034)
--- NOTE | 2023-02-12 22:25 | DI.CT.S_ITS ---
PROCEDURE: CT ANGIO CHEST PE PROTOCOL INDICATIONS: RT-sided chest pain, tachy, recent gi illness 2 weeks ago TECHNIQUE: After the administration of intravenous contrast, 2 mm thick sections acquired from the pulmonary apices to the posterior costophrenic angles. 3-dimensional maximum intensity projection (MIP) coronal and sagittal reformats were then acquired through the thorax. For radiation dose reduction, the following was used: automated exposure control, adjustment of mA and/or kV according to patient size. COMPARISON: None. FINDINGS: Image quality: Excellent. Pulmonary arteries: Pulmonary arteries are normal in size, and demonstrate no intraluminal filling defects to suggest central pulmonary embolism. Lungs and pleura: Lungs are clear. No pleural effusions or pneumothorax. Central and peripheral airways are patent. Mediastinum: Heart size is normal, without pericardial effusion. No mediastinal or hilar adenopathy. Thoracic aorta is normal in caliber and enhancement. Esophagus is normal in caliber, without hiatal hernia. Bones and chest wall: No suspicious bony lesions. Ribs and thoracic spine appear intact throughout. Thyroid gland is unremarkable. No axillary or supraclavicular adenopathy. Abdomen: Visualized upper abdominal solid organs appear normal in the early arterial phase of enhancement. IMPRESSION: 1. No acute pulmonary emboli. 2. No acute pulmonary process. Dictated by: Anup Pagan M.D. on 02/12/2023 at 23:19 Approved by: Anup Pagan M.D. on 02/12/2023 at 23:20
[2023-02-12] MEDS: SODIUM CHLORIDE 0.9% 1,000 ML 1000 ML IV ×2 (22:35→23:59)
[2023-02-12 22:43] LABS: C-Reactive Protein Quant < 0.5 mg/dL (<1.0)
[2023-02-12 22:49] LABS: NT-proBNP (BNP-Adult 18+) < 20 pg/mL (<125)
[2023-02-12 22:55] LABS: Erythrocyte Sedimentation Rate 40 MM/HR (0-20)
--- NOTE | 2023-02-12 23:02 | PC.NURSE ---
Pt returns from CT and informed hyperbaric technician that her chest felt hot. I went in to assess pt and re initiate iv fluids. Pt temp was 99.0 fahrenheit orally. Vitals stable, sinus tachycardia @117bpm. Patient denies having any hives, itching, swelling of her tongue or mouth. I made sure she had the call light and informed doctor of patient's concern. Briefly after patient put vice president mission integration light, i went to assess pt. She states my heart rate dropped to 79 and I got scared. awake overnight monitor reading 108-115bpm sinus tachy. I sat with patient to reassure her and told her to call us again if anything changes. Patient expressed understanding. No further concerns at this time.
[2023-02-12 23:36] LABS: Adenovirus Not Detected (Not Detect); Coronavirus 229E Not Detected (Not Detect); Coronavirus HKU1 Not Detected (Not Detect); Coronavirus NL 63 Not Detected (Not Detect); Coronavirus OC43 Not Detected (Not Detect); Human Metapneumovirus Not Detected (Not Detect); Human Rhinovirus/Enterovirus Not Detected (Not Detect); SARS- CoV-2 Not Detected (Not Detecte)
[2023-02-12 23:37] LABS: B. parapertussis Not Detected (Not Detecte); Bordetella pertussis Not Detected (Not Detecte); Chlamydophila pneumoniae Not Detected (Not Detect); Influenza A Not Detected (Not Detect); Influenza B Not Detected (Not Detect); Mycoplasma pneumoniae Not Detected (Not Detect); Parainfluenza Virus 1 Not Detected (Not Detect); Parainfluenza Virus 2 Not Detected (Not Detect); Parainfluenza Virus 3 Not Detected (Not Detect); Parainfluenza Virus 4 Not Detected (Not Detect); Respiratory Syncytial Virus Not Detected (Not Detect)
[2023-02-12] MEDS: ACETAMINOPHEN 325 MG TABLET 975 MG PO (23:39)
[2023-02-12 23:58] LABS: Troponin I < 0.012 ng/mL (0.01-0.034)
[2023-02-13] VITALS (10 sets, daily range): BP systolic 100–174; BP diastolic 60–90; PULSE 69–113; RESP 13–18; TEMP 35.7–36.4; O2SAT 89–100; BMI 27.1
--- NOTE | 2023-02-13 00:58 | DI.ECHO.S_ITS ---
[facility]---------+ [facility] +---------+ : : [address] : [address] : : : : [id number] : : : : Phone: [phone]+ Echocardiogram Report + + :Name: VIDAL ZAMAN Study Date: 02/13/2023 Height: 60 in : :[facility] ReadingLocation: Weight: 140 lb : : Gender: Female BSA: 1.6 m2 : :: 2000 Age: 22 yrs BP: 100/65 mmHg: :Reason For Study: TACHYCARDIA : :Ordering Physician: MINOR, : :SARITHA Performed By: Gayle Valdez : :Referring: SARITHA GAXIOLA : + + Interpretation Summary The ejection fraction is estimated to be 60-65%. Diastolic parameters suggest probable normal left ventricular diastolic function and normal filling pressures. The right ventricle is normal in size and function. No significant valvular abnormalities. Pulmonary artery pressures cannot be estimated because of the lack of a measurable TR jet velocity. Procedure: A two-dimensional transthoracic echocardiogram with color flow and Doppler was performed. The study quality was technically adequate. There is no prior echocardiogram noted for this patient. The patient was in sinus rhythm with heart rates between 70-76 bpm during the exam. Left Ventricle: The left ventricle is normal in size and wall thickness. The ejection fraction is estimated to be 60-65%. Diastolic parameters suggest probable normal left ventricular diastolic function and normal filling pressures. Right Ventricle: The right ventricle is normal in size and function. Atria: The left atrial size is normal. Right atrial size is normal. There is no Doppler evidence for an interatrial shunt. Mitral Valve: The mitral valve is normal in structure and function. There is trace mitral regurgitation. Aortic Valve: The aortic valve is trileaflet. The aortic valve opens well. There is no aortic valve stenosis. No aortic regurgitation is present. Tricuspid Valve: The tricuspid valve is normal in structure and function. There is a trace or physiologic amount of tricuspid regurgitation. Pulmonary artery pressures cannot be estimated because of the lack of a measurable TR jet velocity. Pulmonic Valve: The pulmonic valve leaflets are thin and pliable; valve motion is normal. There is trace pulmonic regurgitation. Great Vessels: The aortic root is normal size. The dimensions of the ascending aorta are normal. The IVC is of normal diameter and collapses greater than 50% with a sniff. This suggests a low right atrial pressure of 3 mm Hg. Pericardium/ Pleura There is no pericardial effusion. There is no pleural effusion. MMode/2D Measurements & Calculations LVIDd: 4.6 cm LVOT diam: 2.0 cm LVIDs: 3.0 cm Ao root diam: 2.5 cm FS: 35.1 % asc Aorta Diam: 2.5 cm IVSd: 0.47 cm Ao Arch Diam (Prox Trans): 1.9 cm LVPWd: 0.67 cm LV bautista. diameter/BSA (cm/m^2): 2.9 LV sys. diameter/BSA (cm/m^2): 1.9 LA A2 area: 12.6 cm2 RA long axis: 3.2 cm LA A4 area: 13.0 cm2 RA area: 8.7 cm2 LA length (vol): 4.2 cm RA vol: 19.8 ml LA vol: 33.5 ml RA : 12.3 ml/m2 LA vol index: 20.9 ml/m2 RVD1 (basal): 3.0 cm RVD2 (mid): 3.1 cm TAPSE: 2.1 cm Doppler Measurements & Calculations Ao V2 max: 123.5 cm/sec LVOT Max Devin: 86.4 cm/sec Ao V2 mean: 93.2 cm/sec LV V1 max P.0 mmHg Ao max P.1 mmHg LV V1 VTI: 17.8 cm Ao mean P.8 mmHg YOVANA(I,D): 2.1 cm2 Ao V2 VTI: 25.2 cm YOVANA(V,D): 2.1 cm2 sev ratio: 0.71 YOVANA indexed to BSA (cm^2/m^2): 1.3 MV E max devin: 94.5 cm/sec PA V2 max: 100.2 cm/sec MV A max devin: 40.9 cm/sec PA V2 mean: 72.9 cm/sec MV E/A: 2.3 PA mean P.3 mmHg Med Peak E' Devin: 12.6 cm/sec PA pr(Accel): 27.6 mmHg E/E' med: 7.5 Lat Peak E' Devin: 17.6 cm/sec E/E' lat: 5.4 E/e' average: 6.4 MV dec time: 0.22 sec SV(LVOT): 53.8 ml Reading Physician:12:34 PM
[2023-02-13] MEDS: SODIUM CHLORIDE 0.9% 1,000 ML 150 ML IV ×2 (01:09→09:40)
[2023-02-13 01:20] LABS: Bacteria Urine Few (2-10); Culture Indicated Urine Specimen Cultured; RBC Urine None Seen (0-5/HPF); Squamous Epithelial Cell Urine 1-5 /HPF (0-5/HPF); WBC Urine 1-5/HPF (0-5/HPF)
[2023-02-13 01:30] LABS: UR Morphine/Opiate cutoff 300 Negative (Negative); Ur Creatinine Normal (Normal); Ur Specific Gravity Normal (Normal); Urine Amphetamines Negative (Negative); Urine Barbiturates Negative (Negative); Urine Benzodiazepines Negative (Negative); Urine Cocaine Negative (Negative); Urine MDMA Negative (Negative); Urine Methadone Negative (Negative); Urine Methamphetamines Negative (Negative); Urine Oxycodone Negative (Negative); Urine Phencyclidine Negative (Negative); Urine Tetrahydrocannabinol Negative (Negative); Urine Tricyclic Antidepressant Negative (Negative); Urine pH Normal (Normal)
--- NOTE | 2023-02-13 02:54 | PM.HP.1 ---
History of Present Illness History of Present Illness Chief complaint: Dizzy, Fluctuating BP Narrative: ?22-year-old female with a history of asthma which has been relatively well controlled.? Patient states 2-1/2 weeks ago she got sick had nausea vomiting diarrhea the 1st week states that improved she did go to an urgent care got some antinausea medication but then started feeling dizzy.? She describes her dizziness as feeling lightheaded like she might pass out.? She starts to get a little bit of tunnel vision.? She does not have any vertigo symptoms or room spinning or feeling off balance.? She saw primary care nurse practitioner who told her she had low vitamin-D, iron and was had orthostatic hypotension.? Patient has been drinking water regularly but still felt persistently dizzy.? In the last day she had chest pressure/pain which he describes as substernal radiated a little bit towards her back.? Did not radiate anywhere else.? She denies any abdominal back or flank pain.? She states she has felt a little short of breath particularly with sitting up.? She states chest pain is worse when she sits upright it goes away when she lays flat.? Leaning forward does not make any difference.? She does feel that her heart rate goes up when she sits up or tries to walk around.? She states she is felt fatigued in her arms and legs overall for the past 2 weeks.? She states she was also having some ear pain intermittently but that she saw an ENT who told her that she was okay this was the 1st week around January 27.? Patient states she uses inhaler as needed, EpiPen, was taking naproxen but stopped.? Patient states she has known asthma.? She tried to she thought the smoke might be irritating her lungs.? She had some early today but none recently.? She has not had any prior surgeries besides wisdom teeth 2 years ago.? No known drug allergies.? No tobacco, no alcohol, no illicit.? No oral contraceptives or other forms of estrogen.? No long distance travel.? She states mom and dad both have hypertension.? Her grandfather had a stroke.? No known embolic history otherwise, no known cardiac issues otherwise. The patient reports heavy menstruation which finished 3 days ago. [facility] Medical History Anxiety (~2018) Asthma (~2019) PTSD (post-traumatic stress disorder) (~2019) Skin lesion of lower extremity Surgical History Anesthesia [place] teeth removed (~07/2020) Family History Father Hypertension Mother Mental health problem Social History household members: family Smoking Status: Never smoker Meds Home Medications and Allergies Home Medications Medication Instructions Recorded Confirmed Type albuterol sulfate 90 mcg/actuation 2 puff inhalation Q6H 11/29/22 02/13/23 History aerosol inhaler meclizine 25 mg tablet (Motion 25 mg PO QID #30 tabs 01/27/23 02/13/23 Rx Sickness Relief (meclizine)) ferrous sulfate 325 mg (65 mg 325 mg PO DAILY #90 tabs 01/28/23 02/13/23 Rx iron) tablet,delayed release naproxen 500 mg tablet 500 mg PO BID PRN pain #60 tabs 02/03/23 02/13/23 Rx cholecalciferol (vitamin D3) 1,250 1,250 mcg PO QWEEK #12 caps 02/10/23 02/13/23 Rx mcg (50,000 unit) capsule Allergies Allergy/AdvReac Type Severity Reaction Status Date / Time No Known Drug Allergies Allergy Verified 02/12/23 21:00 Review of Systems Constitutional Constitutional: Reports as per HPI and Reports system reviewed and no additional complaints, except as documented Eyes Eyes: Reports as per HPI and Reports system reviewed and no additional complaints, except as documented ENT Ears, Nose, Mouth, and Throat: Yes as per HPI, Yes system reviewed and no additional complaints, except as documented, No dysphagia, No neck pain and No odynophagia Cardiovascular Cardiovascular: Reports system reviewed and no additional complaints, except as documented Respiratory Respiratory: Reports system reviewed and no additional complaints, except as documented Gastrointestinal Gastrointestinal: Denies as per HPI, Reports system reviewed and no additional complaints, except as documented, Denies abdominal pain, Denies belching, Denies melena, Denies bloating, Denies hematochezia, Denies change in bowel habits, Denies tenesmus, Denies change in stool character, Denies coffee ground emesis, Denies constipation, Denies cramping, Denies dysphagia, Denies excessive flatus, Denies heartburn, Denies loose stools, Denies nausea, Denies odynophagia, Denies vomiting, Denies hematemesis and Reports other Musculoskeletal Musculoskeletal: Denies as per HPI, Denies system reviewed and no additional complaints, except as documented, Denies abnormal gait, Denies back pain, Denies myalgias, Denies arthralgias, Denies joint swelling, Denies muscle cramps, Denies muscle weakness, Denies neck pain, Denies numbness and Denies radiating pain into limb Neurologic Neurologic: Denies abnormal gait, Denies confusion and Denies numbness Psychiatric Psychiatric: Denies as per HPI, Reports system reviewed and no additional complaints, except as documented, Denies abnormal sleep pattern, Denies anxiety, Denies change in appetite, Denies confusion, Denies depression and Denies auditory hallucinations Exam Vital Signs (past 8 hours): - 02/12/23 21:00 02/12/23 21:35 02/12/23 22:00 Temperature 98.8 F Pulse Rate 149 H 117 H Respiratory Rate 18 Blood Pressure 139/84 115/68 Pulse Oximetry 100 99 Oxygen Delivery Method Room Air Oxygen Flow Rate 02/12/23 22:00 02/12/23 22:30 02/12/23 22:30 Temperature Pulse Rate 114 H 112 H Respiratory Rate 14 20 Blood Pressure 122/73 Pulse Oximetry 98 99 Oxygen Delivery Method Room Air Oxygen Flow Rate 02/12/23 22:48 02/12/23 22:48 02/12/23 22:59 Temperature 99.0 F Pulse Rate 108 H Respiratory Rate 14 Blood Pressure 126/80 118/74 Pulse Oximetry 99 Oxygen Delivery Method Oxygen Flow Rate 02/12/23 22:59 02/12/23 23:00 02/12/23 23:30 Temperature Pulse Rate 108 H 107 H Respiratory Rate 8 L 11 L Blood Pressure 128/78 Pulse Oximetry 100 100 Oxygen Delivery Method Room Air Oxygen Flow Rate 02/12/23 23:30 02/13/23 00:00 02/13/23 00:30 Temperature Pulse Rate 95 H 100 H 94 H Respiratory Rate 17 15 13 Blood Pressure Pulse Oximetry 100 99 99 Oxygen Delivery Method Oxygen Flow Rate 02/13/23 00:47 02/13/23 00:47 02/13/23 01:00 Temperature Pulse Rate 86 Respiratory Rate Blood Pressure 128/85 119/75 Pulse Oximetry 89 L Oxygen Delivery Method Oxygen Flow Rate 02/13/23 01:00 02/13/23 01:30 02/13/23 01:30 Temperature Pulse Rate 79 76 Respiratory Rate 15 15 Blood Pressure 113/72 Pulse Oximetry 100 99 Oxygen Delivery Method Oxygen Flow Rate 02/13/23 02:36 Temperature 97.5 F L Pulse Rate 74 Respiratory Rate 18 Blood Pressure 109/71 Pulse Oximetry 96 Oxygen Delivery Method Oxygen Flow Rate 0 Oxygen Delivery Method Room Air Oxygen Flow Rate 0 Const General: cooperative, comfortable and well developed Orientation: alert and oriented x3 HENMT Head: normal to inspection and atraumatic Face and sinus: normal facial exam Mouth: oral mucosae normal and moist mucous membranes Throat: posterior oropharynx normal Eyes General: appearance normal, both eyes and all related structures Pupils: PERRL EOM: EOM intact bilaterally Neck Neck: normal visual inspection and full ROM Chest Chest: normal inspection of the chest Resp Effort & Inspection: normal respiratory effort and able to speak in complete sentences Auscultation: clear to auscultation bilaterally Cardio Palpation: normal PMI Rate: regular rate Rhythm: regular rhythm Heart Sounds: S1 normal and S2 normal GI Inspection: normal to inspection Palpation: soft and no hepatosplenomegaly Auscultation: normal bowel sounds Skin General: no rashes or lesions noted Neuro General: patient alert, patient awake, patient oriented x3 and no focal motor deficits Cognition: normal cognition Motor: muscle tone normal throughout Sensory Exam: no sensory deficits noted Extrem General: full ROM and no calf tenderness Psych Appearance: grossly normal Mental Status: mental status grossly normal Speech and Movement: speech and movement normal Objective Labs 02/12/23 21:32 02/12/23 21:32 Labs: Laboratory Results - last 24 hr 02/12/23 02/12/23 02/12/23 21:25 21:25 21:32 WBC 8.9 RBC 4.83 Hgb 12.8 Hct 38.4 MCV 79.5 L MCH 26.4 MCHC 33.2 RDW 12.9 Plt Count 382 Neut % (Auto) 66.4 Lymph % (Auto) 27.3 Bertie % (Auto) 5.1 Eos % (Auto) 0.6 L Baso % (Auto) 0.6 Neut # (Auto) 5900 Lymph # (Auto) 2400 Bertie # (Auto) 500 Eos # (Auto) 100 Baso # (Auto) 100 ESR PT INR APTT Sodium Potassium Chloride Carbon Dioxide BUN Creatinine Estimated GFR BUN/Creatinine Ratio Glucose Calcium Magnesium Total Bilirubin AST ALT Alkaline Phosphatase Total Creatine Kinase Troponin I C-Reactive Protein NT-Pro-B Natriuret Pep Total Protein Albumin Globulin Albumin/Globulin Ratio Lipase Urine RBC None seen Urine WBC 1-5/hpf Ur Squamous Epith Cells 1-5 /hpf Urine Bacteria Few (2-10) H Ur Culture Indicated? Specimen cultured U Opiates 300ng/mL cut Negative Ur Oxycodone Screen Negative Urine Methadone Screen Negative Ur Barbiturates Screen Negative U Tricyclic Antidepress Negative Ur Phencyclidine Scrn Negative Ur Amphetamines Screen Negative U Methamphetamines Scrn Negative Ur MDMA Scrn (Ecstasy) Negative U Benzodiazepines Scrn Negative Urine Cocaine Screen Negative U Marijuana (THC) Screen Negative Chlamy pneumoniae PCR Adenovirus (PCR) B. pertussis DNA (PCR) B.parapertussis DNA PCR Coronavirus OC43 (PCR) Coronavirus HKU1 (PCR) Coronavirus 229E (PCR) SARS-CoV-2 (PCR) Coronavirus NL63 (PCR) Human Metapneumovir PCR Influenza Type A (PCR) Influenza Type B (PCR) M. pneumoniae (PCR) Parainfluenza 1 (PCR) Parainfluenza 2 (PCR) Parainfluenza 3 (PCR) Parainfluenza 4 (PCR) RSV (PCR) Entero/Rhino (PCR) 02/12/23 02/12/23 02/12/23 21:32 21:32 21:32 WBC RBC Hgb Hct MCV MCH MCHC RDW Plt Count Neut % (Auto) Lymph % (Auto) Bertie % (Auto) Eos % (Auto) Baso % (Auto) Neut # (Auto) Lymph # (Auto) Bertie # (Auto) Eos # (Auto) Baso # (Auto) ESR 40 H PT 12.0 INR 1.0 APTT 37 H Sodium 140 Potassium 3.4 Chloride 104 Carbon Dioxide 24 BUN 7 Creatinine 0.66 Estimated GFR > 60 BUN/Creatinine Ratio 10.6 Glucose 96 Calcium 9.5 Magnesium 2.0 Total Bilirubin 0.3 AST 23 ALT 19 Alkaline Phosphatase 47 Total Creatine Kinase 49 Troponin I < 0.012 C-Reactive Protein NT-Pro-B Natriuret Pep Total Protein 8.7 H Albumin 4.7 Globulin 4.0 Albumin/Globulin Ratio 1.2 Lipase 69 Urine RBC Urine WBC Ur Squamous Epith Cells Urine Bacteria Ur Culture Indicated? U Opiates 300ng/mL cut Ur Oxycodone Screen Urine Methadone Screen Ur Barbiturates Screen U Tricyclic Antidepress Ur Phencyclidine Scrn Ur Amphetamines Screen U Methamphetamines Scrn Ur MDMA Scrn (Ecstasy) U Benzodiazepines Scrn Urine Cocaine Screen U Marijuana (THC) Screen Chlamy pneumoniae PCR Adenovirus (PCR) B. pertussis DNA (PCR) B.parapertussis DNA PCR Coronavirus OC43 (PCR) Coronavirus HKU1 (PCR) Coronavirus 229E (PCR) SARS-CoV-2 (PCR) Coronavirus NL63 (PCR) Human Metapneumovir PCR Influenza Type A (PCR) Influenza Type B (PCR) M. pneumoniae (PCR) Parainfluenza 1 (PCR) Parainfluenza 2 (PCR) Parainfluenza 3 (PCR) Parainfluenza 4 (PCR) RSV (PCR) Entero/Rhino (PCR) 02/12/23 02/12/23 02/12/23 21:32 22:30 23:29 WBC RBC Hgb Hct MCV MCH MCHC RDW Plt Count Neut % (Auto) Lymph % (Auto) Bertie % (Auto) Eos % (Auto) Baso % (Auto) Neut # (Auto) Lymph # (Auto) Bertie # (Auto) Eos # (Auto) Baso # (Auto) ESR PT INR APTT Sodium Potassium Chloride Carbon Dioxide BUN Creatinine Estimated GFR BUN/Creatinine Ratio Glucose Calcium Magnesium Total Bilirubin AST ALT Alkaline Phosphatase Total Creatine Kinase Troponin I < 0.012 C-Reactive Protein < 0.5 NT-Pro-B Natriuret Pep < 20 Total Protein Albumin Globulin Albumin/Globulin Ratio Lipase Urine RBC Urine WBC Ur Squamous Epith Cells Urine Bacteria Ur Culture Indicated? U Opiates 300ng/mL cut Ur Oxycodone Screen Urine Methadone Screen Ur Barbiturates Screen U Tricyclic Antidepress Ur Phencyclidine Scrn Ur Amphetamines Screen U Methamphetamines Scrn Ur MDMA Scrn (Ecstasy) U Benzodiazepines Scrn Urine Cocaine Screen U Marijuana (THC) Screen Chlamy pneumoniae PCR Not detected Adenovirus (PCR) Not detected B. pertussis DNA (PCR) Not detected B.parapertussis DNA PCR Not detected Coronavirus OC43 (PCR) Not detected Coronavirus HKU1 (PCR) Not detected Coronavirus 229E (PCR) Not detected SARS-CoV-2 (PCR) Not detected Coronavirus NL63 (PCR) Not detected Human Metapneumovir PCR Not detected Influenza Type A (PCR) Not detected Influenza Type B (PCR) Not detected M. pneumoniae (PCR) Not detected Parainfluenza 1 (PCR) Not detected Parainfluenza 2 (PCR) Not detected Parainfluenza 3 (PCR) Not detected Parainfluenza 4 (PCR) Not detected RSV (PCR) Not detected Entero/Rhino (PCR) Not detected Assessment & Plan Assessment and plan (1) Tachycardia: Problem details: Unclear etiology. Laboratory unremarkable, U tox unremarkable, EKG showing sinus tachycardia, CT of the chest normal. Patient reported heavy menstruation finished 3 days ago. Status: Acute Plan: -Telemetry -IV fluids -Echo (2) Low ferritin: Problem details: 01/2023: 11 Status: Acute Plan: -Restart iron supplement (3) Vitamin D deficiency: Problem details: 01/2023 @17.1 Status: Acute Plan: -Restart vitamin D supplement (4) Asthma: Status: Acute Plan: -Albuterol as needed Time Spent With Patient Time with patient: 50 to 69 minutes with 50% spent counseling/coordinating care Quality VTE Deep Vein Thrombosis/Pulmonary Embolism Present on Admission: No MIPS - Admit I confirm the patient?s Advance Care Plan is present, Code status is documented, Surrogate decision maker is in patient?s record [If Yes, STOP here]: Yes MIPS - Meds 'Current medications' to include all prescriptions, [id number] products, herbals, cannabis/cannabidiol products, and vitamin/mineral/dietary (nutritional) supplements. I have utilized all available resources to obtain, update, or review the patient?s current medications. [If Yes, STOP here]: Yes
--- NOTE | 2023-02-13 06:15 | PC.NURSE ---
Report taken from ED. Pt A&Ox4, VSS. NSR on tele. C/o dizziness when HOB elevated and with movement. Up to BSC with 1 person assist. Had pt sit on edge of bed until feeling stable enough to stand. No c/o pain since arrival to floor.
--- NOTE | 2023-02-13 07:24 | PM.HP.1 ---
History of Present Illness History of Present Illness Chief complaint: Dizzy, Fluctuating BP Narrative: ?22-year-old female with a history of asthma which has been relatively well controlled.? Patient states 2-1/2 weeks ago she got sick had nausea vomiting diarrhea the 1st week states that improved she did go to an urgent care got some antinausea medication but then started feeling dizzy.? She describes her dizziness as feeling lightheaded like she might pass out.? She starts to get a little bit of tunnel vision.? She does not have any vertigo symptoms or room spinning or feeling off balance.? She saw primary care nurse practitioner who told her she had low vitamin-D, iron and was had orthostatic hypotension.? Patient has been drinking water regularly but still felt persistently dizzy.? In the last day she had chest pressure/pain which he describes as substernal radiated a little bit towards her back.? Did not radiate anywhere else.? She denies any abdominal back or flank pain.? She states she has felt a little short of breath particularly with sitting up.? She states chest pain is worse when she sits upright it goes away when she lays flat.? Leaning forward does not make any difference.? She does feel that her heart rate goes up when she sits up or tries to walk around.? She states she is felt fatigued in her arms and legs overall for the past 2 weeks.? She states she was also having some ear pain intermittently but that she saw an ENT who told her that she was okay this was the 1st week around January 27.? Patient states she uses inhaler as needed, EpiPen, was taking naproxen but stopped.? Patient states she has known asthma.? She tried to she thought the smoke might be irritating her lungs.? She had some early today but none recently.? She has not had any prior surgeries besides wisdom teeth 2 years ago.? No known drug allergies.? No tobacco, no alcohol, no illicit.? No oral contraceptives or other forms of estrogen.? No long distance travel.? She states mom and dad both have hypertension.? Her grandfather had a stroke.? No known embolic history otherwise, no known cardiac issues otherwise. The patient reports heavy menstruation which finished 3 days ago. [facility] Medical History Anxiety (~2018) Asthma (~2019) PTSD (post-traumatic stress disorder) (~2019) Skin lesion of lower extremity Surgical History Anesthesia [place] teeth removed (~07/2020) Family History Father Hypertension Mother Mental health problem Social History household members: family Smoking Status: Never smoker Meds Home Medications and Allergies Home Medications Medication Instructions Recorded Confirmed Type albuterol sulfate 90 mcg/actuation 2 puff inhalation Q6H 11/29/22 02/13/23 History aerosol inhaler meclizine 25 mg tablet (Motion 25 mg PO QID #30 tabs 01/27/23 02/13/23 Rx Sickness Relief (meclizine)) ferrous sulfate 325 mg (65 mg 325 mg PO DAILY #90 tabs 01/28/23 02/13/23 Rx iron) tablet,delayed release naproxen 500 mg tablet 500 mg PO BID PRN pain #60 tabs 02/03/23 02/13/23 Rx cholecalciferol (vitamin D3) 1,250 1,250 mcg PO QWEEK #12 caps 02/10/23 02/13/23 Rx mcg (50,000 unit) capsule Allergies Allergy/AdvReac Type Severity Reaction Status Date / Time No Known Drug Allergies Allergy Verified 02/12/23 21:00 Review of Systems Review of Systems Narrative: All other systems reviewed with the patient and are negative unless otherwise stated. Exam Vital Signs (past 8 hours): - 02/12/23 23:30 02/12/23 23:30 02/13/23 00:00 Temperature Pulse Rate 95 H 100 H Respiratory Rate 17 15 Blood Pressure 128/78 Pulse Oximetry 100 99 Oxygen Flow Rate 02/13/23 00:30 02/13/23 00:47 02/13/23 00:47 Temperature Pulse Rate 94 H 86 Respiratory Rate 13 Blood Pressure 128/85 Pulse Oximetry 99 89 L Oxygen Flow Rate 02/13/23 01:00 02/13/23 01:00 02/13/23 01:30 Temperature Pulse Rate 79 Respiratory Rate 15 Blood Pressure 119/75 113/72 Pulse Oximetry 100 Oxygen Flow Rate 02/13/23 01:30 02/13/23 02:36 Temperature 97.5 F L Pulse Rate 76 74 Respiratory Rate 15 18 Blood Pressure 109/71 Pulse Oximetry 99 96 Oxygen Flow Rate 0 Oxygen Delivery Method Room Air Oxygen Flow Rate 0 Narrative Exam Narrative: GEN: no acute distress HEENT: moist mucous membranes, PERRL NECK: trachea midline, no JVD CV: regular rate and rhythm, no murmurs PULM: clear bilaterally ABD: soft, nontender, nondistended, no organomegaly EXT: warm and well perfused with no edema NEURO: awake, alert, oriented, no focal deficits Objective Labs 02/12/23 21:32 02/12/23 21:32 Labs: Laboratory Results - last 24 hr 02/12/23 02/12/23 02/12/23 21:25 21:25 21:32 WBC 8.9 RBC 4.83 Hgb 12.8 Hct 38.4 MCV 79.5 L MCH 26.4 MCHC 33.2 RDW 12.9 Plt Count 382 Neut % (Auto) 66.4 Lymph % (Auto) 27.3 [place] % (Auto) 5.1 Eos % (Auto) 0.6 L Baso % (Auto) 0.6 Neut # (Auto) 5900 Lymph # (Auto) 2400 [place] # (Auto) 500 Eos # (Auto) 100 Baso # (Auto) 100 ESR PT INR APTT Sodium Potassium Chloride Carbon Dioxide BUN Creatinine Estimated GFR BUN/Creatinine Ratio Glucose Calcium Magnesium Total Bilirubin AST ALT Alkaline Phosphatase Total Creatine Kinase Troponin I C-Reactive Protein NT-Pro-B Natriuret Pep Total Protein Albumin Globulin Albumin/Globulin Ratio Lipase Urine RBC None seen Urine WBC 1-5/hpf Ur Squamous Epith Cells 1-5 /hpf Urine Bacteria Few (2-10) H Ur Culture Indicated? Specimen cultured U Opiates 300ng/mL cut Negative Ur Oxycodone Screen Negative Urine Methadone Screen Negative Ur Barbiturates Screen Negative U Tricyclic Antidepress Negative Ur Phencyclidine Scrn Negative Ur Amphetamines Screen Negative U Methamphetamines Scrn Negative Ur MDMA Scrn (Ecstasy) Negative U Benzodiazepines Scrn Negative Urine Cocaine Screen Negative U Marijuana (THC) Screen Negative Chlamy pneumoniae PCR Adenovirus (PCR) B. pertussis DNA (PCR) B.parapertussis DNA PCR Coronavirus OC43 (PCR) Coronavirus HKU1 (PCR) Coronavirus 229E (PCR) SARS-CoV-2 (PCR) Coronavirus NL63 (PCR) Human Metapneumovir PCR Influenza Type A (PCR) Influenza Type B (PCR) M. pneumoniae (PCR) Parainfluenza 1 (PCR) Parainfluenza 2 (PCR) Parainfluenza 3 (PCR) Parainfluenza 4 (PCR) RSV (PCR) Entero/Rhino (PCR) 02/12/23 02/12/23 02/12/23 21:32 21:32 21:32 WBC RBC Hgb Hct MCV MCH MCHC RDW Plt Count Neut % (Auto) Lymph % (Auto) [place] % (Auto) Eos % (Auto) Baso % (Auto) Neut # (Auto) Lymph # (Auto) [place] # (Auto) Eos # (Auto) Baso # (Auto) ESR 40 H PT 12.0 INR 1.0 APTT 37 H Sodium 140 Potassium 3.4 Chloride 104 Carbon Dioxide 24 BUN 7 Creatinine 0.66 Estimated GFR > 60 BUN/Creatinine Ratio 10.6 Glucose 96 Calcium 9.5 Magnesium 2.0 Total Bilirubin 0.3 AST 23 ALT 19 Alkaline Phosphatase 47 Total Creatine Kinase 49 Troponin I < 0.012 C-Reactive Protein NT-Pro-B Natriuret Pep Total Protein 8.7 H Albumin 4.7 Globulin 4.0 Albumin/Globulin Ratio 1.2 Lipase 69 Urine RBC Urine WBC Ur Squamous Epith Cells Urine Bacteria Ur Culture Indicated? U Opiates 300ng/mL cut Ur Oxycodone Screen Urine Methadone Screen Ur Barbiturates Screen U Tricyclic Antidepress Ur Phencyclidine Scrn Ur Amphetamines Screen U Methamphetamines Scrn Ur MDMA Scrn (Ecstasy) U Benzodiazepines Scrn Urine Cocaine Screen U Marijuana (THC) Screen Chlamy pneumoniae PCR Adenovirus (PCR) B. pertussis DNA (PCR) B.parapertussis DNA PCR Coronavirus OC43 (PCR) Coronavirus HKU1 (PCR) Coronavirus 229E (PCR) SARS-CoV-2 (PCR) Coronavirus NL63 (PCR) Human Metapneumovir PCR Influenza Type A (PCR) Influenza Type B (PCR) M. pneumoniae (PCR) Parainfluenza 1 (PCR) Parainfluenza 2 (PCR) Parainfluenza 3 (PCR) Parainfluenza 4 (PCR) RSV (PCR) Entero/Rhino (PCR) 02/12/23 02/12/23 02/12/23 21:32 22:30 23:29 WBC RBC Hgb Hct MCV MCH MCHC RDW Plt Count Neut % (Auto) Lymph % (Auto) [place] % (Auto) Eos % (Auto) Baso % (Auto) Neut # (Auto) Lymph # (Auto) [place] # (Auto) Eos # (Auto) Baso # (Auto) ESR PT INR APTT Sodium Potassium Chloride Carbon Dioxide BUN Creatinine Estimated GFR BUN/Creatinine Ratio Glucose Calcium Magnesium Total Bilirubin AST ALT Alkaline Phosphatase Total Creatine Kinase Troponin I < 0.012 C-Reactive Protein < 0.5 NT-Pro-B Natriuret Pep < 20 Total Protein Albumin Globulin Albumin/Globulin Ratio Lipase Urine RBC Urine WBC Ur Squamous Epith Cells Urine Bacteria Ur Culture Indicated? U Opiates 300ng/mL cut Ur Oxycodone Screen Urine Methadone Screen Ur Barbiturates Screen U Tricyclic Antidepress Ur Phencyclidine Scrn Ur Amphetamines Screen U Methamphetamines Scrn Ur MDMA Scrn (Ecstasy) U Benzodiazepines Scrn Urine Cocaine Screen U Marijuana (THC) Screen Chlamy pneumoniae PCR Not detected Adenovirus (PCR) Not detected B. pertussis DNA (PCR) Not detected B.parapertussis DNA PCR Not detected Coronavirus OC43 (PCR) Not detected Coronavirus HKU1 (PCR) Not detected Coronavirus 229E (PCR) Not detected SARS-CoV-2 (PCR) Not detected Coronavirus NL63 (PCR) Not detected Human Metapneumovir PCR Not detected Influenza Type A (PCR) Not detected Influenza Type B (PCR) Not detected M. pneumoniae (PCR) Not detected Parainfluenza 1 (PCR) Not detected Parainfluenza 2 (PCR) Not detected Parainfluenza 3 (PCR) Not detected Parainfluenza 4 (PCR) Not detected RSV (PCR) Not detected Entero/Rhino (PCR) Not detected Assessment & Plan Assessment and plan (1) Tachycardia: Problem details: Unclear etiology. Laboratory unremarkable, U tox unremarkable, EKG showing sinus tachycardia, CT of the chest normal. Patient reported heavy menstruation finished 3 days ago. Status: Acute Plan: -Telemetry -IV fluids -Echo (2) Low ferritin: Problem details: 01/2023: 11 Status: Acute Plan: -Restart iron supplement (3) Vitamin D deficiency: Problem details: 01/2023 @17.1 Status: Acute Plan: -Restart vitamin D supplement (4) Asthma: Status: Acute Plan: -Albuterol as needed Time Spent With Patient Time with patient: 50 to 69 minutes with 50% spent counseling/coordinating care Quality VTE Deep Vein Thrombosis/Pulmonary Embolism Present on Admission: No
[2023-02-13] MEDS: ACETAMINOPHEN 325 MG TABLET 650 MG PO (09:58)
--- NOTE | 2023-02-13 10:27 | CM.DANOTE ---
Initial Discharge Assessment Note: Case reviewed, met with patient. Introduced self and role. Payer: [employer] and Medicaid PCP: Nelia Urbina 22 yo admitted with dizziness, weakness, tachycardia, low ferritin level. ECHO pending. Patient lives in [place] with her parents and is independent. In the Fall she will attend [employer] and lives in a dorm. PLAN: When medically cleared, discharge home to care of parents. Family to transport. YARIEL Discharge Planning/Care Management CM Discharge Assessment Start: 02/13/23 10:25 Freq: Status: Active Protocol: Document 02/13/23 10:25 (Rec: 02/13/23 10:27 [id number]) Discharge Planning Assessment Assigned Plc Engineer Domonique Kuhn RN/DCP Advance Directives? No Prior Living Arrangements House Comment Lives with parents, will move to a dorm in the Fall to attend [employer] Household Members family Type of transporation used prior to Drives own vehicle admit Independent with ADL's Yes Is patient alert and oriented? Yes Caregiver for Another No Discharge Plan Home Referrals Initiated None needed Review Status In Process Next Review Type Continued Stay Review
--- NOTE | 2023-02-13 10:42 | PC.NURSE ---
Addendum entered by Karol Fitzgerald R.N. 02/13/23 14:58: pt feeling 75% better verbal and written discharge instructions given-home via private vehicle with family, Original Note: echo done in room complete, assist to br and pt c/o being dizzy but mostly lightheaded. voiding large amt and c/o h/a-medicated with tylenol po. pt report sx better when lying flat.
--- NOTE | 2023-02-13 13:38 | PM.DS.1 ---
History of Present Illness History of Present Illness Chief complaint: Dizzy, Fluctuating BP Narrative: ?22-year-old female with a history of asthma which has been relatively well controlled.? Patient states 2-1/2 weeks ago she got sick had nausea vomiting diarrhea the 1st week states that improved she did go to an urgent care got some antinausea medication but then started feeling dizzy.? She describes her dizziness as feeling lightheaded like she might pass out.? She starts to get a little bit of tunnel vision.? She does not have any vertigo symptoms or room spinning or feeling off balance.? She saw primary care nurse practitioner who told her she had low vitamin-D, iron and was had orthostatic hypotension.? Patient has been drinking water regularly but still felt persistently dizzy.? In the last day she had chest pressure/pain which he describes as substernal radiated a little bit towards her back.? Did not radiate anywhere else.? She denies any abdominal back or flank pain.? She states she has felt a little short of breath particularly with sitting up.? She states chest pain is worse when she sits upright it goes away when she lays flat.? Leaning forward does not make any difference.? She does feel that her heart rate goes up when she sits up or tries to walk around.? She states she is felt fatigued in her arms and legs overall for the past 2 weeks.? She states she was also having some ear pain intermittently but that she saw an ENT who told her that she was okay this was the 1st week around January 27.? Patient states she uses inhaler as needed, EpiPen, was taking naproxen but stopped.? Patient states she has known asthma.? She tried to she thought the smoke might be irritating her lungs.? She had some early today but none recently.? She has not had any prior surgeries besides wisdom teeth 2 years ago.? No known drug allergies.? No tobacco, no alcohol, no illicit.? No oral contraceptives or other forms of estrogen.? No long distance travel.? She states mom and dad both have hypertension.? Her grandfather had a stroke.? No known embolic history otherwise, no known cardiac issues otherwise. The patient reports heavy menstruation which finished 3 days ago. Discharge Providers Provider Date of admission: 02/13/23 01:03 Discharge Date: 02/13/23 Primary care physician: Nelia Urbina, DO Discharge provider: Michael Salas, DO Summary Hospital Course Discharge Diagnosis: (1) Tachycardia and vertigo: ?Problem details: Unclear etiology.? Laboratory unremarkable, U tox unremarkable, EKG showing sinus tachycardia, CT of the chest normal. Patient reported heavy menstruation finished 3 days ago. ?Status:?Acute ?Plan: -Telemetry -IV fluids -Echo (2) Low ferritin: ?Problem details: 01/2023: 11 ?Status:?Acute ?Plan: -Restart iron supplement (3) Vitamin D deficiency: ?Problem details: 01/2023 @17.1 ?Status:?Acute ?Plan: -Restart vitamin D supplement (4) Asthma: ?Status:?Acute ?Plan: -Albuterol as needed Hospital Course: Admitted for vertigo and tachycardia. Had completely negative workup. Thought to be dehydration as she improved with IVF. Exam Vital Signs (past 8 hours): - 02/13/23 07:22 02/13/23 07:15 02/13/23 09:15 Temperature 96.2 F L Pulse Rate 79 Pulse Rate [Orthostatic Lying] 87 87 Pulse Rate [Orthostatic Sitting] 101 H 101 H Pulse Rate [Orthostatic Standing] 113 H 113 H Respiratory Rate 18 Blood Pressure 100/65 Blood Pressure [Orthostatic Lying] 123/85 123/85 Blood Pressure [Orthostatic Sitting] 136/90 136/90 Blood Pressure [Orthostatic Standing] 124/76 124/76 Pulse Oximetry 100 Oxygen Flow Rate 0 02/13/23 11:00 Temperature 96.8 F L Pulse Rate 69 Pulse Rate [Orthostatic Lying] Pulse Rate [Orthostatic Sitting] Pulse Rate [Orthostatic Standing] Respiratory Rate 18 Blood Pressure 174/60 H Blood Pressure [Orthostatic Lying] Blood Pressure [Orthostatic Sitting] Blood Pressure [Orthostatic Standing] Pulse Oximetry 99 Oxygen Flow Rate 0 Oxygen Delivery Method Room Air Oxygen Flow Rate 0 Narrative Exam Narrative: GEN: no acute distress HEENT: moist mucous membranes, PERRL NECK: trachea midline, no JVD CV: regular rate and rhythm, no murmurs PULM: clear bilaterally ABD: soft, nontender, nondistended, no organomegaly EXT: warm and well perfused with no edema NEURO: awake, alert, oriented, no focal deficits Objective Labs 02/12/23 21:32 02/12/23 21:32 Labs: Laboratory Results - last 24 hr 02/12/23 02/12/23 02/12/23 21:25 21:25 21:32 WBC 8.9 RBC 4.83 Hgb 12.8 Hct 38.4 MCV 79.5 L MCH 26.4 MCHC 33.2 RDW 12.9 Plt Count 382 Neut % (Auto) 66.4 Lymph % (Auto) 27.3 [place] % (Auto) 5.1 Eos % (Auto) 0.6 L Baso % (Auto) 0.6 Neut # (Auto) 5900 Lymph # (Auto) 2400 [place] # (Auto) 500 Eos # (Auto) 100 Baso # (Auto) 100 ESR PT INR APTT Sodium Potassium Chloride Carbon Dioxide BUN Creatinine Estimated GFR BUN/Creatinine Ratio Glucose Calcium Magnesium Total Bilirubin AST ALT Alkaline Phosphatase Total Creatine Kinase Troponin I C-Reactive Protein NT-Pro-B Natriuret Pep Total Protein Albumin Globulin Albumin/Globulin Ratio Lipase Urine RBC None seen Urine WBC 1-5/hpf Ur Squamous Epith Cells 1-5 /hpf Urine Bacteria Few (2-10) H Ur Culture Indicated? Specimen cultured U Opiates 300ng/mL cut Negative Ur Oxycodone Screen Negative Urine Methadone Screen Negative Ur Barbiturates Screen Negative U Tricyclic Antidepress Negative Ur Phencyclidine Scrn Negative Ur Amphetamines Screen Negative U Methamphetamines Scrn Negative Ur MDMA Scrn (Ecstasy) Negative U Benzodiazepines Scrn Negative Urine Cocaine Screen Negative U Marijuana (THC) Screen Negative Chlamy pneumoniae PCR Adenovirus (PCR) B. pertussis DNA (PCR) B.parapertussis DNA PCR Coronavirus OC43 (PCR) Coronavirus HKU1 (PCR) Coronavirus 229E (PCR) SARS-CoV-2 (PCR) Coronavirus NL63 (PCR) Human Metapneumovir PCR Influenza Type A (PCR) Influenza Type B (PCR) M. pneumoniae (PCR) Parainfluenza 1 (PCR) Parainfluenza 2 (PCR) Parainfluenza 3 (PCR) Parainfluenza 4 (PCR) RSV (PCR) Entero/Rhino (PCR) 02/12/23 02/12/23 02/12/23 21:32 21:32 21:32 WBC RBC Hgb Hct MCV MCH MCHC RDW Plt Count Neut % (Auto) Lymph % (Auto) [place] % (Auto) Eos % (Auto) Baso % (Auto) Neut # (Auto) Lymph # (Auto) [place] # (Auto) Eos # (Auto) Baso # (Auto) ESR 40 H PT 12.0 INR 1.0 APTT 37 H Sodium 140 Potassium 3.4 Chloride 104 Carbon Dioxide 24 BUN 7 Creatinine 0.66 Estimated GFR > 60 BUN/Creatinine Ratio 10.6 Glucose 96 Calcium 9.5 Magnesium 2.0 Total Bilirubin 0.3 AST 23 ALT 19 Alkaline Phosphatase 47 Total Creatine Kinase 49 Troponin I < 0.012 C-Reactive Protein NT-Pro-B Natriuret Pep Total Protein 8.7 H Albumin 4.7 Globulin 4.0 Albumin/Globulin Ratio 1.2 Lipase 69 Urine RBC Urine WBC Ur Squamous Epith Cells Urine Bacteria Ur Culture Indicated? U Opiates 300ng/mL cut Ur Oxycodone Screen Urine Methadone Screen Ur Barbiturates Screen U Tricyclic Antidepress Ur Phencyclidine Scrn Ur Amphetamines Screen U Methamphetamines Scrn Ur MDMA Scrn (Ecstasy) U Benzodiazepines Scrn Urine Cocaine Screen U Marijuana (THC) Screen Chlamy pneumoniae PCR Adenovirus (PCR) B. pertussis DNA (PCR) B.parapertussis DNA PCR Coronavirus OC43 (PCR) Coronavirus HKU1 (PCR) Coronavirus 229E (PCR) SARS-CoV-2 (PCR) Coronavirus NL63 (PCR) Human Metapneumovir PCR Influenza Type A (PCR) Influenza Type B (PCR) M. pneumoniae (PCR) Parainfluenza 1 (PCR) Parainfluenza 2 (PCR) Parainfluenza 3 (PCR) Parainfluenza 4 (PCR) RSV (PCR) Entero/Rhino (PCR) 02/12/23 02/12/23 02/12/23 21:32 22:30 23:29 WBC RBC Hgb Hct MCV MCH MCHC RDW Plt Count Neut % (Auto) Lymph % (Auto) [place] % (Auto) Eos % (Auto) Baso % (Auto) Neut # (Auto) Lymph # (Auto) [place] # (Auto) Eos # (Auto) Baso # (Auto) ESR PT INR APTT Sodium Potassium Chloride Carbon Dioxide BUN Creatinine Estimated GFR BUN/Creatinine Ratio Glucose Calcium Magnesium Total Bilirubin AST ALT Alkaline Phosphatase Total Creatine Kinase Troponin I < 0.012 C-Reactive Protein < 0.5 NT-Pro-B Natriuret Pep < 20 Total Protein Albumin Globulin Albumin/Globulin Ratio Lipase Urine RBC Urine WBC Ur Squamous Epith Cells Urine Bacteria Ur Culture Indicated? U Opiates 300ng/mL cut Ur Oxycodone Screen Urine Methadone Screen Ur Barbiturates Screen U Tricyclic Antidepress Ur Phencyclidine Scrn Ur Amphetamines Screen U Methamphetamines Scrn Ur MDMA Scrn (Ecstasy) U Benzodiazepines Scrn Urine Cocaine Screen U Marijuana (THC) Screen Chlamy pneumoniae PCR Not detected Adenovirus (PCR) Not detected B. pertussis DNA (PCR) Not detected B.parapertussis DNA PCR Not detected Coronavirus OC43 (PCR) Not detected Coronavirus HKU1 (PCR) Not detected Coronavirus 229E (PCR) Not detected SARS-CoV-2 (PCR) Not detected Coronavirus NL63 (PCR) Not detected Human Metapneumovir PCR Not detected Influenza Type A (PCR) Not detected Influenza Type B (PCR) Not detected M. pneumoniae (PCR) Not detected Parainfluenza 1 (PCR) Not detected Parainfluenza 2 (PCR) Not detected Parainfluenza 3 (PCR) Not detected Parainfluenza 4 (PCR) Not detected RSV (PCR) Not detected Entero/Rhino (PCR) Not detected PFSH Medical History (Updated 02/23/23 @ 16:54 by Jo-Ann Ch PA-C) Anxiety (~2017) Asthma (~2019) BPPV (benign paroxysmal positional vertigo) Chest pain Dizziness PTSD (post-traumatic stress disorder) (~2019) Skin lesion of lower extremity Surgical History Anesthesia [place] teeth removed (~07/2020) Family History Father Hypertension Mother Mental health problem Social History household members: family Smoking Status: Never smoker Discharge Plan Discharge Plan Patient Disposition: Home Provider Discharge Comment: No concerning cause was found for your dizziness. We gave you lots of IV rehydration and your symptoms improved. Discharge orders & Medications Prescriptions: Continued naproxen 500 mg tablet 500 mg PO BID PRN (Reason: pain) Qty: 60 0RF meclizine [Motion Sickness Relief(mecliz)] 25 mg tablet 25 mg PO QID Qty: 30 0RF ferrous sulfate 325 mg (65 mg iron) tablet,delayed release (DR/EC) 325 mg PO DAILY Qty: 90 0RF Rx Instructions: take with vitamin C cholecalciferol (vitamin D3) 1,250 mcg (50,000 unit) capsule 1,250 mcg PO QWEEK Qty: 12 0RF albuterol sulfate 90 mcg/actuation HFA aerosol inhaler 2 puff inhalation Q6H Patient Comments: INHALE 2 PUFFS BY MOUTH EVERY 4 HOURS NEEDED No Action triamcinolone acetonide 0.1 % cream See Rx Instructions topical BID Qty: 30 0RF Rx Instructions: 1 mg topically bid TOP BID; Follow up/Referrals: Nelia Urbina DO [Primary Care Provider] - 2 Weeks Visit Report/Discharge Packet Stand Alone Forms: Patient Portal/API, Stroke Signs & Symptoms Discharge Data Primary Care Provider: Nelia Urbina Attending Provider: Sanya Cotto Admit Date/Time: 02/13/23 01:03 Discharges patient from system. Discharge Date/Time: 02/13/23 14:40 Quality VTE Deep Vein Thrombosis/Pulmonary Embolism Present on Admission: No
== END 2023-02-13 14:40 | disposition home or self-care (01) ==
LOC: ED 02-13 01:02 → AC 02-13 01:03
PROVIDERS: Admitting Provider Internal Medicine; Emergency Provider Emergency Medicine; Family Provider Family Medicine; PCP Family Medicine; Visit Provider Internal Medicine
DX: R00.2 Palpitations (principal); R42 Dizziness and giddiness; E86.0 Dehydration; J45.909 Unspecified asthma, uncomplicated; Z20.822 Contact with and (suspected) exposure to COVID-19
CPT/HCPCS: 36415; 71045; 71275; 80053; 80305; 81003; 81015; 81025; 82550; 83690; 83735; 83880; 84484; 85025; 85610; 85651; 85730; 86140; 87086; 87633; 93005; 93306; 96360; 96361; 99285; G0378; Q9967

== ENCOUNTER → 2023-02-23 09:55 | Outpatient (CLI) | payer OTHER, MEDICAID, SELFPAY ==
[2023-02-13 02:11] VITALS: BMI 27.1
--- NOTE | 2023-02-23 09:56 | DI.RAD.S_ITS ---
PROCEDURE: XR FEMUR RT MIN 2V INDICATIONS: chronic pain to front thigh x 2 yrs, no trauma TECHNIQUE: 2 views of the femur were acquired. COMPARISON: None. FINDINGS: Bones: No fractures or dislocations. No suspicious bony lesions. Soft tissues: No suspicious soft tissue calcifications or masses. IMPRESSION: No acute bony abnormality. Dictated by: Carlos Martinez M.D. on 02/23/2023 at 12:02 Approved by: Carlos Martinez M.D. on 02/23/2023 at 12:08
== END ==
PROVIDERS: Family Provider Family Medicine; PCP Family Medicine; Referring Provider Physician Assistant; Visit Provider Physician Assistant
DX: M79.651 Pain in right thigh (principal)
CPT/HCPCS: 73552